=== PATIENT | male | born 1950 | race Two or more races ===

== ENCOUNTER 2017-03-25 14:28 | Inpatient (IN) | payer MEDICAID, MEDICARE, OTHER ==
[~2017-03-25] VITALS: Ht 172.7 cm; Wt 70.3 kg
[~2017-03-25 14:28] MED LIST: ACETAMINOPHEN325 M1 ORAL; ADALAT20 MG ORAL; ASPIR 8181 MG ORAL; CLONIDINE0.1 MG ORAL; DIVALPROEX SOD250 MG PO; IBUPROFEN600 MG ORAL; MAALOX MAXIMUM355 M1 PO; METOPROLOL TART25 MG ORAL; MOM30 ML ORAL; NEURONTIN300 MG ORAL; NKM; NOVOLOG100 UNIT/4 SQ; PERPHENAZINE16 MG PO
--- NOTE | 2017-03-25 14:53 | Emergency Room Report ---
History of Present Illness General Chief Complaint: Lower Back Pain or Injury Source: Patient, Family Member, EMS Present Illness HPI Patient presents with complaints of fall Patient is a poor historian I did make contact with the patient's daughter for further information At this time patient reported that he had been feeling very weak that he had a fall Was unclear there was a lapse of consciousness associated with this However the patient present with complaints of low back pain and left facial pain On review of records patient appears to have been discharge from the hospital 2 days ago When speaking with the patient he reports that last time he was in the hospital was one year ago History of present illness remains limited as the patient himself is a poor historian Allergies: Coded Allergies: No Known Allergies (Unverified , 03/25/17) Patient History Limited by: medical condition Past Medical History: see triage record Pertinent Family History: unable to obtain Reviewed Nursing Documentation: PMH: Agreed, PSxH: Agreed Nursing Documentation-PMH Hx Hypertension: Yes Hx Diabetes: Yes Review of Systems All Other Systems: limited - Other than the ones mentioned in the history of present illness all others are reviewed however they do stay limited due to the patient's mental status Physical Exam Vital Signs Date Time Temp Pulse Resp B/P Pulse Ox O2 Delivery O2 Flow Rate FiO2 03/25/17 14:22 98.2 111 16 110/70 98 Room Air Sp02 EP Interpretation: reviewed, normal General Appearance: mild distress - Patient appears tremulous, disheveled Head: normocephalic, other - Abrasion left maxillary area Eyes: bilateral eye EOMI, bilateral eye PERRL ENT: hearing grossly normal, normal pharynx, TMs + canals normal, uvula midline Neck: full range of motion, supple, no meningismus, no bony tend Respiratory: lungs clear, normal breath sounds, no rhonchi, no respiratory distress, no retraction, no accessory muscle use Cardiovascular #1: normal peripheral pulses, regular rate, rhythm, no edema, no gallop, no JVD, no murmur Gastrointestinal: normal bowel sounds, non tender, soft, no mass, no organomegaly, non-distended, no guarding, no hernia, no pulsatile mass, no rebound Genitourinary: no CVA tenderness Musculoskeletal: other - Patient is able to move all extremities without focal deficit, appears mildly tremulous, he had some discomfort on paraspinal L2-3 area Neurologic: responsive, motor strength/tone normal, sensory intact Skin: other - Appears disheveled, abrasion to the left maxillary area Lymphatic: normal inspection, no adenopathy Medical Decision Making Diagnostic Impression: Primary Impression: Syncope Additional Impressions: Hyponatremia Rhabdomyolysis Fracture of lumbar spine ER Course Patient is a fairly complex patient with multiple differential to consideration including but not limited to cardiac cardiopulmonary and vascular emergencies Patient appears tremulous unstable Baseline blood work reveal significant abnormalities as well Patient has IV hydration provided CAT scan of the L-spine reveals an indeterminate L4 compression fracture Admitting physician was notified about this And patient admitted for further care Labs Test 03/25/17 14:53 03/25/17 18:00 White Blood Count 13.9 K/UL (4.8-10.8) Red Blood Count 4.26 M/UL (4.70-6.10) Hemoglobin 12.8 G/DL (14.2-18.0) Hematocrit 37.8 % (42.0-52.0) Mean Corpuscular Volume 89 FL (80-99) Mean Corpuscular Hemoglobin 30.1 PG (27.0-31.0) Mean Corpuscular Hemoglobin Concent 33.9 G/DL (32.0-36.0) Red Cell Distribution Width 11.6 % (11.6-14.8) Platelet Count 271 K/UL (150-450) Mean Platelet Volume 5.6 FL (6.5-10.1) Neutrophils (%) (Auto) 76.3 % (45.0-75.0) Lymphocytes (%) (Auto) 14.0 % (20.0-45.0) Monocytes (%) (Auto) 8.9 % (1.0-10.0) Eosinophils (%) (Auto) 0.2 % (0.0-3.0) Basophils (%) (Auto) 0.6 % (0.0-2.0) Prothrombin Time 10.0 SEC (9.30-11.50) Prothromb Time International Ratio 1.0 (0.9-1.1) Activated Partial Thromboplast Time 26 SEC (23-33) Sodium Level 128 mEQ/L (135-145) Potassium Level 4.3 mEQ/L (3.4-4.9) Chloride Level 88 mEQ/L (98-107) Carbon Dioxide Level 22 mEQ/L (20-30) Anion Gap 18 (5-15) Blood Urea Nitrogen 33 mg/dL (7-23) Creatinine 0.9 mg/dL (0.7-1.2) Estimat Glomerular Filtration Rate > 60 mL/min (>60) Glucose Level 125 mg/dL (74-106) Calcium Level 9.5 mg/dL (8.6-10.2) Total Bilirubin 0.3 mg/dL (0.0-1.2) Aspartate Amino Transf (AST/SGOT) 62 U/L (5-40) Alanine Aminotransferase (ALT/SGPT) 58 U/L (3-41) Alkaline Phosphatase 68 U/L (40-129) Total Creatine Kinase 1459 U/L (38-174) Creatine Kinase MB 9.9 ng/mL (< 6.7) Creatine Kinase MB Relative Index 0.6 Troponin I < 0.30 ng/mL (<=0.30) Total Protein 7.3 g/dL (6.6-8.7) Albumin 4.1 g/dL (3.5-5.2) Globulin 3.2 g/dL Albumin/Globulin Ratio 1.2 (1.0-2.7) Urine Color Pale yellow Urine Appearance Clear Urine pH 6 (4.5-8.0) Urine Specific [place] 1.005 (1.005-1.035) Urine Protein Negative (NEGATIVE) Urine Glucose (UA) Negative (NEGATIVE) Urine Ketones 1+ (NEGATIVE) Urine Occult Blood 5+ (NEGATIVE) Urine Nitrite Negative (NEGATIVE) Urine Bilirubin Negative (NEGATIVE) Urine Urobilinogen Normal MG/DL (0.0-1.0) Urine Leukocyte Esterase Negative (NEGATIVE) Urine RBC 5-10 /HPF (0 - 0) Urine WBC 0-2 /HPF (0 - 0) Urine Squamous Epithelial Cells None /LPF (NONE/OCC) Urine Bacteria Few /HPF (NONE) Rhythm Strip Diag. Results EP Interpretation: yes Rate: 98 Rhythm: NSR, no PVC's, no ectopy Chest X-Ray Diagnostic Results EP Interpretation: Yes Findings: no consolidation, no effusion, no pneumothorax Number of Views: 1 CT/MRI/US Diagnostic Results CT/MRI/US Diagnostic Results : Impression CT head no acute disease CTLs spine: indeterminate L4 compression fracture Last Vital Signs Date Time Temp Pulse Resp B/P Pulse Ox O2 Delivery O2 Flow Rate FiO2 5/4/17 14:22 98.2 111 16 110/70 98 Room Air Status: improved Disposition: ADMITTED INPATIENT Condition: Serious VANDANA LUNA D.O. March 25, 2017 14:53
[2017-03-25 14:55] VITALS: BP 140/75
[2017-03-25 15:05] LABS: BASOPHILS % (AUTO) 0.6 % (0.0-2.0); EOSINOPHILS % (AUTO) 0.2 % (0.0-3.0); MEAN CORPUSCULAR HEMOGLOBIN 30.1 PG (27.0-31.0); MEAN CORPUSCULAR HGB CONC 33.9 G/DL (32.0-36.0); MEAN CORPUSCULAR VOLUME 89 FL (80-99); MEAN PLATELET VOLUME 5.6 FL (6.5-10.1); MONOCYTES % (AUTO) 8.9 % (1.0-10.0); NEUTROPHILS % (AUTO) 76.3 % (45.0-75.0); PLATELET COUNT 271 K/UL (150-450); RED BLOOD COUNT 4.26 M/UL (4.70-6.10); RED CELL DISTRIBUTION WIDTH 11.6 % (11.6-14.8); WHITE BLOOD COUNT 13.9 K/UL (4.8-10.8)
[2017-03-25 15:17] LABS: ALANINE AMINOTRANSFERASE 58 U/L (3-41); ALBUMIN/GLOBULIN RATIO 1.2 (1.0-2.7); ANION GAP 18 (5-15); ASPARTATE AMINO TRANSFERASE 62 U/L (5-40); CALCIUM 9.5 mg/dL (8.6-10.2); CARBON DIOXIDE 22 mEQ/L (20-30); CHLORIDE 88 mEQ/L (98-107); CREATININE 0.9 mg/dL (0.7-1.2); GLOMERULAR FILTRATION RATE > 60 mL/min (>60); HEMOLYSIS 2; POTASSIUM 4.3 mEQ/L (3.4-4.9); SODIUM 128 mEQ/L (135-145); TOTAL PROTEIN 7.3 g/dL (6.6-8.7)
[2017-03-25 15:18] LABS: TROPONIN I < 0.30 ng/mL (<=0.30)
[2017-03-25 15:27] LABS: CKMB 9.9 ng/mL (< 6.7)
--- NOTE | 2017-03-25 15:42 | Diagnostic Imaging Report ---
Indications: Fall, head trauma, pain Technique: Continuous helical CT imaging of the brain was performed with automatic exposure control on a Siemens sensation [address] scanner. Axial and coronal images were reconstructed at 5 mm slice thickness and interval. 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 No evidence of mass or hemorrhage, other attenuation abnormality, mass effect, midline shift, hydrocephalus or increased intracranial pressure. Bone window images are unremarkable. Visualized paranasal sinuses and mastoid air cells are clear. IMPRESSION: No evidence of acute injury or other acute intracranial pathology, unchanged Stable chronic changes as described. This includes left occipital parenchymal calcification which may represent old neurocysticercosis or low-grade glioma such as oligodendroglioma. The CT scanner at [facility] is accredited by the [employer] and the scans are performed using protocols designed to limit radiation exposure to as low as reasonably achievable to attain images of sufficient resolution adequate for diagnostic evaluation.
--- NOTE | 2017-03-25 15:44 | Diagnostic Imaging Report ---
Indications: Fall, low back pain Technique: Continuous helical CT imaging of the lumbar spine was performed with automatic exposure control on a Siemens sensation [address] scanner. Axial, coronal, and sagittal images were reconstructed at 3 mm slice thicknesses. CTDI volume(s): 13 mGy Total DLP: 413 mGy-cm Findings: Comparison: None Vertebral alignment is intact. The L4 vertebral body demonstrates compression fracture of its inferior endplate with approximately 20-30% height loss. No associated lucent fracture line, cortical discontinuity, retropulsion, posterior element involvement, underlying lytic destructive process, or paraspinous soft tissue swelling/fluid. Remaining main lumbar vertebrae normal in height and configuration. Osteophytes are present at the margins of multiple disc spaces without significant narrowing. Scattered arterial mural calcifications. Vascular patency indeterminate. IMPRESSION: Moderate compression fracture L4 vertebral body, acuity indeterminate. If clinically indicated, consider MRI for further evaluation. No other evidence of acute lumbar injury Multilevel degenerative disc disease Arteriosclerosis
--- NOTE | 2017-03-25 16:21 | Diagnostic Imaging Report ---
Indication: Shortness of breath Technique: Single portable AP view of the chest. Findings: Comparison: None. The bones and extra pulmonary soft tissues, cardiomediastinal silhouette, pulmonary vasculature and parenchyma, and pleural surfaces are unremarkable. IMPRESSION: Negative portable AP chest.
[2017-03-25 16:30] VITALS: BP 142/89
[2017-03-25] MEDS ORDERED: Diltiazem 25mg/5ml IV ONE (16:45)
[2017-03-25] MEDS ORDERED: HALOPERIDOL5 MG ORAL ×2 (17:08→19:11)
[2017-03-25] MEDS ORDERED: GABAPENTIN300 MG OCCLUS (17:09)
[2017-03-25 18:29] VITALS: BP 146/81
[2017-03-25 18:56] LABS: APPEARANCE,URINE CLEAR; KETONES,URINE 1+ (NEGATIVE); LEUKOCYTE ESTERASE ,URINE NEGATIVE (NEGATIVE); NITRITE,URINE NEGATIVE (NEGATIVE); PH,URINE 6 (4.5-8.0); PROTEIN,URINE NEGATIVE (NEGATIVE); UROBILINOGEN,URINE NORMAL MG/DL (0.0-1.0)
[2017-03-25 19:04] LABS: BACTERIA,URINE FEW /HPF; WBC,URINE 0-2 /HPF (0 - 0)
[2017-03-25] MEDS ORDERED: GABAPENTIN300 MG ORAL (19:10)
[2017-03-25] MEDS ORDERED: ADALAT10 MG ORAL (19:12)
[2017-03-25] MEDS ORDERED: METFORMIN HCL500 M1 ORAL (19:12)
[2017-03-25] MEDS ORDERED: PERPHEN-AMITRI1 EACH PO (19:13)
[2017-03-25] MEDS ORDERED: ATORVASTATIN CA20 MG ORAL (19:14)
[2017-03-25 19:18] VITALS: BP 140/85
[2017-03-25] MEDS ORDERED: Norco 5mg/325mg tab ORAL PRN (21:15)
[2017-03-25] MEDS ORDERED: Acetaminophen 500mg (ES) tab ORAL PRN (21:15)
[2017-03-25] MEDS: Heparin 5000 units/ml inj SUBQ SCH (22:21)
[2017-03-26] VITALS: BP 135/80
[2017-03-26 04:02] VITALS: BP 126/78
[2017-03-26] MEDS: NovoLOG Insulin Flexpen SUBQ SCH ×4 (06:30→21:55)
[2017-03-26 08:43] VITALS: BP 149/78
[2017-03-26] MEDS: Aspirin EC 81mg tab ORAL SCH (08:53)
[2017-03-26] MEDS: metFORMIN 500mg tab ORAL SCH ×2 (08:54→17:16)
[2017-03-26] MEDS: Metoprolol 25mg tab ORAL SCH (08:54)
[2017-03-26] MEDS: Heparin 5000 units/ml inj SUBQ SCH ×2 (08:59→21:56)
[2017-03-26] MEDS ORDERED: NIFEdipine 10mg cap ORAL SCH (09:00)
[2017-03-26] MEDS ORDERED: LORazepam Inj 2mg/ml 1ml IV ONE (11:30)
[2017-03-26 12:15] VITALS: BP 115/78
--- NOTE | 2017-03-26 13:55 | Diagnostic Imaging Report ---
Indication: Back pain Technique: MRI examination of the Lumbar spine was performed in a 1.5 Annia magnet. Sequences obtained include sagittal and axial T1 and T2 fast spin echo, and sagittal STIR. No IV gadolinium was given Comparison: none Findings: There is mild loss of height of the L4 vertebra but there is no bone marrow edema indicating a recent acute event or injury. Bone marrow signal is normal. There is desiccation of the intervertebral discs which appear relatively normal in height. There is hypertrophy of the facets at multiple levels consistent with osteoarthritis. Conus medullaris is seen at T12. L1-2 is unremarkable other than facet arthritis. L2-3 shows desiccation of the disc and hypertrophied facets. L3-4 shows facet hypertrophy. Mild foraminal stenosis noted. L4-5 shows mild disc bulge and facet arthropathy. Mild foraminal stenosis noted. L5-S1 demonstrates hypertrophy facets. Mild foraminal stenosis noted. Impression: No acute injury. Old mild compression fracture of L4 vertebra. Degenerative spondylosis with mild disc disease and mild to moderate facet arthropathy at multiple levels. Mild narrowing of the neural foramen at L3-4, L4-5 and L5-S1.
[2017-03-26 16:01] VITALS: BP 117/74
--- NOTE | 2017-03-26 18:18 | History and Physical Report ---
DATE OF ADMISSION: 03/25/2017 CHIEF COMPLAINT: Recurrent falls. HISTORY OF PRESENT ILLNESS: This is a 66-year-old male who was just discharged from this hospital several days ago with the same complaint. The patient was found on the street by paramedics and was transferred to this hospital during the last admission. He was then discharged to a residential care facility, but he kept falling. The patient is a very poor historian and unable to give any further information. At this time, the patient has a more extended database. PAST MEDICAL HISTORY: 1. Organic brain syndrome. 2. Psychosis. 3. Type 2 diabetes mellitus. 4. Hypertensive cardiovascular disease. HOME MEDICATIONS: 1. Baby aspirin. 2. Atorvastatin. 3. Depakote. 4. Neurontin. 5. Haldol. 6. Metformin. 7. Metoprolol. 8. Nifedipine. 9. Perphenazine. ALLERGIES: No known drug allergies. FAMILY HISTORY: Unable to obtain. The patient is confused. SOCIAL HISTORY: Unable to obtain. The patient is confused. REVIEW OF SYSTEMS: Unable to obtain. The patient is confused. PHYSICAL EXAMINATION: GENERAL: This is an elderly male who is in no acute distress. VITAL SIGNS: Blood pressure 126/78, pulse 109, sinus tachycardia, respirations 20, O2 saturation 98% on room air, and temperature 98. HEENT: The head is normocephalic and atraumatic. Pupils are equal, round, and reactive to light and accommodation consensually. NECK: Supple. Trachea is midline. There was no lymphadenopathy or thyromegaly. LUNGS: Clear to auscultation and percussion. HEART: Regular rate and rhythm without rubs, murmurs, or gallops. ABDOMEN: Soft and nontender. Bowel sounds are active. EXTREMITIES: No clubbing, cyanosis, or edema. NEUROLOGICAL: He is confused. There were no gross focal findings. The patient has a resting tremor. LABORATORY AND ANCILLARY DATA: CBC from yesterday, white count 13,900 and hemoglobin 12.8. Sodium 128. CPK 1459. Urinalysis, 5-10 RBCs, otherwise within normal limits. Head CT, no acute injury and stable chronic changes, which include left occipital parenchymal calcifications that were noticed during the last admission. Spine CT shows moderate compression fracture of L4 vertebral body, acuity in the terminates. ASSESSMENT: 1. Recurrent syncopal episodes, multifactorial, most likely related to the patient's multiple medical problems and medications. 2. Organic brain syndrome. 3. Psychosis. 4. Type 2 diabetes mellitus. 5. Hypertensive cardiovascular disease. PLAN: 1. Check vital signs and orthostatic vital signs. 2. Physical therapy evaluation. 3. The patient will need a placement in a [facility] facility due to his current and recurrent falls and risk of sustaining injuries such as the spinal fracture. Kevin Harrington M.D. DR: RADHA JOB#: [id number] CC:
[2017-03-26 20:00] VITALS: BP 128/68
[2017-03-26] MEDS ORDERED: PERPHENAZINE 2 MG ORAL SCH (21:00)
[2017-03-26] MEDS: PERPHENAZINE 2 MG ORAL SCH (22:50)
[2017-03-27] VITALS: BP 152/78
[2017-03-27 04:25] VITALS: BP 148/78
[2017-03-27] MEDS: NovoLOG Insulin Flexpen SUBQ SCH ×4 (06:16→21:06)
[2017-03-27 08:04] VITALS: BP 129/70
[2017-03-27 08:39] LABS: BASOPHILS % (AUTO) 1.3 % (0.0-2.0); EOSINOPHILS % (AUTO) 2.2 % (0.0-3.0); LYMPHOCYTES % (AUTO) 26.7 % (20.0-45.0); MEAN CORPUSCULAR HEMOGLOBIN 31.1 PG (27.0-31.0); MEAN CORPUSCULAR HGB CONC 33.6 G/DL (32.0-36.0); MEAN CORPUSCULAR VOLUME 92 FL (80-99); MONOCYTES % (AUTO) 9.4 % (1.0-10.0); NEUTROPHILS % (AUTO) 60.4 % (45.0-75.0); PLATELET COUNT 269 K/UL (150-450); RED BLOOD COUNT 4.31 M/UL (4.70-6.10); RED CELL DISTRIBUTION WIDTH 12.4 % (11.6-14.8); WHITE BLOOD COUNT 8.7 K/UL (4.8-10.8)
[2017-03-27] MEDS: Metoprolol 25mg tab ORAL SCH (08:44)
[2017-03-27] MEDS: Aspirin EC 81mg tab ORAL SCH (08:44)
[2017-03-27] MEDS: metFORMIN 500mg tab ORAL SCH ×2 (08:44→17:18)
[2017-03-27] MEDS: Heparin 5000 units/ml inj SUBQ SCH ×2 (08:46→21:02)
[2017-03-27 09:05] LABS: ALANINE AMINOTRANSFERASE 70 U/L (3-41); ALBUMIN/GLOBULIN RATIO 1.2 (1.0-2.7); ANION GAP 15 (5-15); ASPARTATE AMINO TRANSFERASE 103 U/L (5-40); CALCIUM 9.4 mg/dL (8.6-10.2); CARBON DIOXIDE 25 mEQ/L (20-30); CHLORIDE 96 mEQ/L (98-107); CREATININE 0.7 mg/dL (0.7-1.2); GLOMERULAR FILTRATION RATE > 60 mL/min (>60); HEMOLYSIS 6; MAGNESIUM 2.1 mg/dL (1.7-2.5); PHOSPHORUS 2.5 mg/dL (2.5-4.8); POTASSIUM 3.8 mEQ/L (3.4-4.9); SODIUM 136 mEQ/L (135-145); TOTAL PROTEIN 6.9 g/dL (6.6-8.7)
--- NOTE | 2017-03-27 09:05 | General Progress Note ---
Assessment/Plan Assessment/Plan 1. Recurrent syncopal episodes, multifactorial, most likely related to the patient's multiple medical problems and medications. 2. Organic brain syndrome. 3. Psychosis. 4. Type 2 diabetes mellitus. 5. Hypertensive cardiovascular disease. PLAN: MRI spine showed no acute injury.Old mild compression fracture of L4 vertebra.Degenerative spondylosis with mild disc disease and mild to moderate facet arthropathy at multiple levels. Mild narrowing of the neural foramen at L3-4, L4 -5 and L5-S1. continue current Mx need SNF Subjective Allergies: Coded Allergies: No Known Allergies (Unverified , 03/25/17) Subjective No acute event Objective Last 24 Hour Vital Signs Date Time Temp Pulse Resp B/P Pulse Ox O2 Delivery O2 Flow Rate FiO2 03/27/17 08:44 103 129/70 03/27/17 08:44 103 129/70 03/27/17 08:04 97.9 103 21 129/70 98 Room Air 03/27/17 04:50 95 03/27/17 04:25 97.2 97 19 148/78 95 Room Air 03/27/17 00:00 97.9 100 19 152/78 97 Room Air 03/27/17 00:00 93 03/26/17 21:00 96 96 103 03/26/17 20:00 91 03/26/17 20:00 98.1 95 20 128/68 97 Room Air 03/26/17 16:01 97.4 89 20 117/74 Room Air 03/26/17 16:00 95 03/26/17 12:15 97.7 95 20 115/78 98 Room Air 03/26/17 12:00 92 03/26/17 11:40 96 03/26/17 11:35 87 03/26/17 11:30 92 03/26/17 10:31 95 115/75 Intake and Output 03/26/17 03/27/17 19:00 07:00 Intake Total 480 ml 250 ml Balance 480 ml 250 ml Intake Oral 480 ml 250 ml # Voids 5 2 Laboratory Tests 03/27/17 07:22: White Blood Count 8.7, Red Blood Count 4.31L, Hemoglobin 13.4L, Hematocrit 39.9L , Mean Corpuscular Volume 92, Mean Corpuscular Hemoglobin 31.1H, Mean Corpuscular Hemoglobin Concent 33.6, Red Cell Distribution Width 12.4, Platelet Count 269, Mean Platelet Volume 5.0L, Neutrophils (%) (Auto) 60.4, Lymphocytes ( %) (Auto) 26.7, Monocytes (%) (Auto) 9.4, Eosinophils (%) (Auto) 2.2, Basophils (%) (Auto) 1.3, Sodium Level [Pending], Potassium Level [Pending], Chloride Level [Pending], Carbon Dioxide Level [Pending], Blood Urea Nitrogen [Pending], Creatinine [Pending], Estimat Glomerular Filtration Rate [Pending], Glucose Level [Pending], Calcium Level [Pending], Phosphorus Level [Pending], Magnesium Level [Pending], Total Bilirubin [Pending], Aspartate Amino Transf (AST/SGOT) [ Pending], Alanine Aminotransferase (ALT/SGPT) [Pending], Alkaline Phosphatase [ Pending], Total Creatine Kinase [Pending], Total Protein [Pending], Albumin [ Pending], Globulin [Pending] Height (Feet): 5 Height (Inches): 8.00 Weight (Pounds): 155 Objective NAD, confused CTA b/l,no rales, no rhonchi S1,S2,RRR,no M/R/G soft, non tender, BS+ no edema HUGHES,FRANKI March 27, 2017 09:05
[2017-03-27 11:56] VITALS: BP 119/73
[2017-03-27 16:09] VITALS: BP 136/68
--- NOTE | 2017-03-27 17:42 | Cardiology Report ---
APPROVED REPORT EKG Measurement Heart [id number] Sinus tachycardia Otherwise normal ECG
[2017-03-27 20:00] VITALS: BP 140/78
[2017-03-27] MEDS: PERPHENAZINE 2 MG ORAL SCH (21:01)
[2017-03-28 00:28] VITALS: BP 117/61
[2017-03-28 04:00] VITALS: BP 120/64
[2017-03-28] MEDS: NovoLOG Insulin Flexpen SUBQ SCH ×4 (06:46→21:00)
[2017-03-28 08:15] VITALS: BP 185/105
[2017-03-28] MEDS: Metoprolol 25mg tab ORAL SCH ×3 (08:33→21:18)
[2017-03-28] MEDS: Aspirin EC 81mg tab ORAL SCH (08:33)
[2017-03-28] MEDS: metFORMIN 500mg tab ORAL SCH ×2 (08:38→17:51)
[2017-03-28] MEDS: Heparin 5000 units/ml inj SUBQ SCH ×2 (08:38→21:18)
--- NOTE | 2017-03-28 09:08 | General Progress Note ---
Assessment/Plan Assessment/Plan 1. Recurrent syncopal episodes, multifactorial, most likely related to the patient's multiple medical problems and medications. 2. Organic brain syndrome. 3. Psychosis. 4. Type 2 diabetes mellitus. 5. Hypertensive cardiovascular disease.--uncontorlled BP PLAN: increase Lopressor to 50 mg BID Nicotine patch MRI spine showed no acute injury.Old mild compression fracture of L4 vertebra.Degenerative spondylosis with mild disc disease and mild to moderate facet arthropathy at multiple levels. Mild narrowing of the neural foramen at L3-4, L4 -5 and L5-S1. psych consult Discussed with RN Subjective Allergies: Coded Allergies: No Known Allergies (Unverified , 03/25/17) Subjective No acute event walking in the hallway to ask for cigarette Objective Last 24 Hour Vital Signs Date Time Temp Pulse Resp B/P Pulse Ox O2 Delivery O2 Flow Rate FiO2 03/28/17 09:00 112 03/28/17 08:55 112 03/28/17 08:50 112 03/28/17 08:33 100 185/105 03/28/17 08:32 100 185/105 03/28/17 08:15 97.0 100 20 185/105 100 Room Air 03/28/17 04:00 98.1 98 19 120/64 98 Room Air 03/28/17 04:00 88 03/28/17 00:28 98.1 95 18 117/61 98 Room Air 03/28/17 00:00 96 03/27/17 21:00 100 97 102 03/27/17 20:00 96 03/27/17 20:00 97.9 100 19 140/78 97 Room Air 03/27/17 16:09 98.1 92 21 136/68 100 Room Air 03/27/17 16:00 89 03/27/17 12:00 91 03/27/17 11:56 98.1 87 22 119/73 99 Room Air Intake and Output 03/27/17 03/28/17 19:00 07:00 Intake Total 1160 ml 250 ml Balance 1160 ml 250 ml Intake Oral 1160 ml 250 ml # Voids 2 # Bowel Movements 7 Height (Feet): 5 Height (Inches): 8.00 Weight (Pounds): 155 Objective NAD, confused CTA b/l,no rales, no rhonchi S1,S2,RRR,no M/R/G soft, non tender, BS+ no edema HUGHES,FRANKI March 28, 2017 09:08
[2017-03-28] MEDS: LORazepam 1mg tab ORAL PRN (09:57)
[2017-03-28 11:27] VITALS: BP 154/105
[2017-03-28 15:40] VITALS: BP 139/78
[2017-03-28 20:43] VITALS: BP 162/87
[2017-03-28] MEDS: PERPHENAZINE 2 MG ORAL SCH (21:19)
[2017-03-29 00:15] VITALS: BP 154/90
[2017-03-29 04:16] VITALS: BP 148/81
[2017-03-29] MEDS: NovoLOG Insulin Flexpen SUBQ SCH ×4 (06:24→22:00)
[2017-03-29 08:00] VITALS: BP 159/78
--- NOTE | 2017-03-29 08:14 | General Progress Note ---
Assessment/Plan Assessment/Plan Recurrent falls + syncope with L4 spinal fracture - needs SNF. W/U in progress. Acute Rhabdo recheck CPK. Subjective Allergies: Coded Allergies: No Known Allergies (Unverified , 03/25/17) Subjective Very confused Objective Last 24 Hour Vital Signs Date Time Temp Pulse Resp B/P Pulse Ox O2 Delivery O2 Flow Rate FiO2 03/29/17 05:26 86 03/29/17 04:16 98.7 84 19 148/81 97 Room Air 03/29/17 00:15 98.8 100 21 154/90 99 Room Air 03/29/17 00:00 86 03/28/17 21:18 103 157/81 03/28/17 20:44 104 103 108 03/28/17 20:43 98.7 104 20 162/87 95 Room Air 03/28/17 15:40 96.6 95 20 139/78 98 Room Air 03/28/17 11:27 97.3 91 20 154/105 100 Room Air 03/28/17 09:00 112 03/28/17 08:55 112 03/28/17 08:50 112 03/28/17 08:33 100 185/105 03/28/17 08:32 100 185/105 03/28/17 08:15 97.0 100 20 185/105 100 Room Air Intake and Output 03/28/17 03/29/17 19:00 07:00 Intake Total 1190 ml Balance 1190 ml Intake Oral 1190 ml # Voids 8 1 Height (Feet): 5 Height (Inches): 8.00 Weight (Pounds): 155 Objective CV RR Lungs CTA Abd SNT. BS + Neuro confused, nonfocal EMILE JANSEN March 29, 2017 08:14
[2017-03-29] MEDS: Heparin 5000 units/ml inj SUBQ SCH ×2 (08:27→21:58)
[2017-03-29] MEDS: Aspirin EC 81mg tab ORAL SCH (08:28)
[2017-03-29] MEDS: metFORMIN 500mg tab ORAL SCH ×2 (08:29→18:20)
[2017-03-29] MEDS: Metoprolol 25mg tab ORAL SCH ×2 (08:31→21:48)
[2017-03-29] MEDS: LORazepam 1mg tab ORAL PRN (09:29)
[2017-03-29 12:14] VITALS: BP 118/63
[2017-03-29 16:00] VITALS: BP 122/68
[2017-03-29] MEDS ORDERED: Norco 5mg/325mg tab ORAL PRN (18:00)
[2017-03-29] MEDS ORDERED: Acetaminophen 500mg (ES) tab ORAL PRN (18:00)
[2017-03-29 20:00] VITALS: BP 166/90
[2017-03-29] MEDS: PERPHENAZINE 2 MG ORAL SCH (21:49)
--- NOTE | 2017-03-29 22:49 | Consultation ---
DATE OF CONSULTATION: HISTORY OF PRESENT ILLNESS: The patient is a 66-year-old male with a history of psychotic disorder, diabetes mellitus, and hypertension, who has been admitted to the hospital due to recurrent falls. The patient during the evaluation appears to be confused, disoriented, has been presenting with waxing and waning consciousness, and not engaged during the evaluation. He is a poor historian. He is not able to give any information. He also has been presenting with anxiety and agitation. PAST MEDICAL HISTORY: Significant for delirium, psychotic disorder, type 2 diabetes mellitus, and hypertension. ALLERGIES: No known drug allergies. MEDICATIONS: At home includes Haldol, Neurontin, Depakote, atorvastatin, baby aspirin, nifedipine, metoprolol, and perphenazine. FAMILY HISTORY: Was unable to gather any information from the patient. SUBSTANCE ABUSE HISTORY: No known history of illicit drug use or alcohol. MENTAL STATUS EXAM: The patient is confused and disoriented. Mood is anxious. Affect is constricted. Congruent mood. Thought process is concrete. Thought content, no suicidal or homicidal ideation. Cognition is impaired. ASSESSMENT: [place] I Delirium due to underlying medical conditions. [place] II Deferred. [place] III Rhabdomyolysis. [place] IV Low. [place] V Global assessment of functioning is 20. PLAN: 1. The patient is currently on Haldol daily, we will stop the Haldol. We will stop the Depakote. 2. We would limit prescribing lorazepam. 3. We will start the patient on olanzapine 5 mg at bedtime. 4. Continue to follow and readjust the medications. Sona Zimmer M.D. DR: ADOLPH JOB#: [id number] CC:
[2017-03-30] VITALS: BP 136/76
[2017-03-30] MEDS: LORazepam 1mg tab ORAL PRN ×3 (00:50→21:53)
[2017-03-30 04:00] VITALS: BP 135/71
[2017-03-30] MEDS: NovoLOG Insulin Flexpen SUBQ SCH ×4 (06:06→20:18)
[2017-03-30 08:15] VITALS: BP 111/66
--- NOTE | 2017-03-30 08:27 | General Progress Note ---
Assessment/Plan Assessment/Plan Recurrent falls + syncope with L4 spinal fracture - needs SNF. MRI the L4 fracture is old. W/U in progress. Acute Rhabdo recheck CPK. Subjective Allergies: Coded Allergies: No Known Allergies (Unverified , 03/25/17) Subjective Less confused Objective Last 24 Hour Vital Signs Date Time Temp Pulse Resp B/P Pulse Ox O2 Delivery O2 Flow Rate FiO2 03/30/17 04:00 98.0 72 18 135/71 96 Room Air 03/30/17 00:00 98.1 49 18 136/76 97 Room Air 03/29/17 21:48 90 166/90 03/29/17 21:00 91 86 101 03/29/17 20:00 97.6 90 18 166/90 100 Room Air 03/29/17 16:00 97.0 85 22 122/68 96 Room Air 03/29/17 12:14 96.6 86 20 118/63 Room Air 03/29/17 09:10 151 03/29/17 09:05 154 03/29/17 09:00 140 03/29/17 08:31 86 148/81 03/29/17 08:31 86 148/81 Intake and Output 03/29/17 03/30/17 19:00 07:00 Intake Total 840 ml 480 ml Balance 840 ml 480 ml Intake Oral 840 ml 480 ml # Voids 5 2 Height (Feet): 5 Height (Inches): 8.00 Weight (Pounds): 155 Objective CV RR Lungs CTA Abd SNT. BS + Neuro confused, nonfocal EMILE JANSEN March 30, 2017 08:27
[2017-03-30] MEDS: metFORMIN 500mg tab ORAL SCH ×2 (08:56→18:25)
[2017-03-30] MEDS: Aspirin EC 81mg tab ORAL SCH (08:57)
[2017-03-30] MEDS: Metoprolol 25mg tab ORAL SCH ×3 (08:58→20:13)
[2017-03-30] MEDS: Heparin 5000 units/ml inj SUBQ SCH ×2 (08:58→20:17)
[2017-03-30 11:53] VITALS: BP 162/68
[2017-03-30 15:45] VITALS: BP 137/71
[2017-03-30 19:56] VITALS: BP 138/69
[2017-03-30] MEDS: PERPHENAZINE 2 MG ORAL SCH (20:12)
[2017-03-31] VITALS (7 sets, daily range): BP systolic 124–159; BP diastolic 61–83
[2017-03-31] MEDS: NovoLOG Insulin Flexpen SUBQ SCH ×4 (06:02→21:00)
[2017-03-31 06:30] LABS: BASOPHILS % (AUTO) 1.1 % (0.0-2.0); LYMPHOCYTES % (AUTO) 35.2 % (20.0-45.0); MEAN CORPUSCULAR HGB CONC 33.5 G/DL (32.0-36.0); MEAN CORPUSCULAR VOLUME 92 FL (80-99); MONOCYTES % (AUTO) 10.3 % (1.0-10.0); NEUTROPHILS % (AUTO) 50.4 % (45.0-75.0); PLATELET COUNT 285 K/UL (150-450); RED BLOOD COUNT 4.21 M/UL (4.70-6.10); RED CELL DISTRIBUTION WIDTH 12.4 % (11.6-14.8)
[2017-03-31 06:47] LABS: ANION GAP 13 (5-15); CALCIUM 9.8 mg/dL (8.6-10.2); CARBON DIOXIDE 27 mEQ/L (20-30); CHLORIDE 100 mEQ/L (98-107); CREATININE 0.8 mg/dL (0.7-1.2); GLOMERULAR FILTRATION RATE > 60 mL/min (>60); HEMOLYSIS 3; MAGNESIUM 1.8 mg/dL (1.7-2.5); PHOSPHORUS 3.7 mg/dL (2.5-4.8); POTASSIUM 3.8 mEQ/L (3.4-4.9); SODIUM 140 mEQ/L (135-145)
[2017-03-31] MEDS: Metoprolol 25mg tab ORAL SCH ×2 (09:17→21:00)
[2017-03-31] MEDS: metFORMIN 500mg tab ORAL SCH ×2 (09:17→18:48)
[2017-03-31] MEDS: Aspirin EC 81mg tab ORAL SCH (09:17)
[2017-03-31] MEDS: Heparin 5000 units/ml inj SUBQ SCH ×2 (09:20→21:00)
--- NOTE | 2017-03-31 12:04 | General Progress Note ---
Assessment/Plan Assessment/Plan Recurrent falls + syncope with L4 spinal fracture - needs SNF. MRI the L4 fracture is old. W/U in progress. Acute Rhabdo recheck CPK -WNL. Clear for SNF. Subjective Allergies: Coded Allergies: No Known Allergies (Unverified , 03/25/17) Subjective Less confused Objective Last 24 Hour Vital Signs Date Time Temp Pulse Resp B/P Pulse Ox O2 Delivery O2 Flow Rate FiO2 03/31/17 11:31 97.6 83 19 139/83 98 Room Air 03/31/17 09:19 96 137/74 03/31/17 09:17 96 137/74 03/31/17 09:06 92 96 97 03/31/17 08:14 97.7 91 19 127/72 96 Room Air 03/31/17 04:00 96.9 85 17 140/69 97 Room Air 03/31/17 00:00 99.5 88 17 124/ 97 Room Air 03/30/17 21:00 85 85 03/30/17 20:13 92 138/69 03/30/17 19:56 96.9 92 16 138/69 98 Room Air 03/30/17 15:45 98.7 92 22 137/71 98 Room Air Intake and Output 03/30/17 03/31/17 19:00 07:00 Intake Total 1200 ml Balance 1200 ml Intake Oral 1200 ml # Voids 6 3 Laboratory Tests 03/31/17 05:45: White Blood Count 8.0, Red Blood Count 4.21L, Hemoglobin 13.0L, Hematocrit 38.9L , Mean Corpuscular Volume 92, Mean Corpuscular Hemoglobin 31.0, Mean Corpuscular Hemoglobin Concent 33.5, Red Cell Distribution Width 12.4, Platelet Count 285, Mean Platelet Volume 5.0L, Neutrophils (%) (Auto) 50.4, Lymphocytes ( %) (Auto) 35.2, Monocytes (%) (Auto) 10.3H, Eosinophils (%) (Auto) 3.0, Basophils (%) (Auto) 1.1, Sodium Level 140, Potassium Level 3.8, Chloride Level 100, Carbon Dioxide Level 27, Anion Gap 13, Blood Urea Nitrogen 15, Creatinine 0.8, Estimat Glomerular Filtration Rate > 60, Glucose Level 107H, Calcium Level 9.8, Phosphorus Level 3.7, Magnesium Level 1.8, Total Creatine Kinase 131 Height (Feet): 5 Height (Inches): 8.00 Weight (Pounds): 155 Objective CV RR Lungs CTA Abd SNT. BS + Neuro confused, nonfocal EMILE JANSEN March 31, 2017 12:04
[2017-03-31] MEDS: LORazepam 1mg tab ORAL PRN (13:00)
[2017-03-31] MEDS ORDERED: METOPROLOL TART50 M1 ORAL (19:48)
[2017-03-31] MEDS ORDERED: ZYPREXA5 MG ORAL (19:50)
[2017-03-31] MEDS ORDERED: HEPARIN SO5000 UNIT2 SUBQ (19:53)
[2017-03-31] MEDS ORDERED: NICODERM CQ1 EAC1 TD (19:54)
[2017-03-31] MEDS ORDERED: LORAZEPAM1 MG ORAL (19:56)
[2017-03-31] MEDS ORDERED: NORCO 5-325 TA1 EAC1 ORAL (19:57)
[2017-03-31] MEDS ORDERED: TYLENOL EXTRA500 MG ORAL (19:58)
[2017-03-31] MEDS ORDERED: NOVOLOG100 UNITS1 ×2 (20:00→20:02)
[2017-03-31] MEDS: PERPHENAZINE 2 MG ORAL SCH (21:00)
[2017-04-01 04:00] VITALS: BP 150/75
[2017-04-01] MEDS: NovoLOG Insulin Flexpen SUBQ SCH ×4 (06:14→21:45)
[2017-04-01 08:00] VITALS: BP 131/64
[2017-04-01] MEDS: Aspirin EC 81mg tab ORAL SCH (09:35)
[2017-04-01] MEDS: metFORMIN 500mg tab ORAL SCH ×2 (09:36→18:24)
[2017-04-01] MEDS: Metoprolol 25mg tab ORAL SCH ×2 (09:36→21:36)
[2017-04-01] MEDS: Heparin 5000 units/ml inj SUBQ SCH ×2 (09:39→21:42)
[2017-04-01 12:00] VITALS: BP 168/89
[2017-04-01 16:00] VITALS: BP 131/68
--- NOTE | 2017-04-01 17:25 | General Progress Note ---
Assessment/Plan Assessment/Plan Recurrent falls + syncope with L4 spinal fracture - needs SNF. MRI the L4 fracture is old. W/U in progress. Acute Rhabdo recheck CPK -WNL. Clear for SNF. Subjective Allergies: Coded Allergies: No Known Allergies (Unverified , 03/25/17) Subjective Less confused Objective Last 24 Hour Vital Signs Date Time Temp Pulse Resp B/P Pulse Ox O2 Delivery O2 Flow Rate FiO2 04/01/17 16:00 97.8 85 18 131/68 Room Air 04/01/17 12:00 97.7 85 19 168/89 100 Room Air 04/01/17 09:36 88 131/64 04/01/17 09:35 88 131/64 04/01/17 09:00 88 85 85 04/01/17 08:00 98.1 88 19 131/64 98 Room Air 04/01/17 04:00 87 86 91 04/01/17 04:00 96.9 87 17 150/75 Room Air 03/31/17 23:18 97.2 101 17 159/69 97 Room Air 03/31/17 21:00 92 146/92 03/31/17 21:00 92 92 96 03/31/17 19:50 97.0 86 17 129/75 99 Room Air Intake and Output 03/31/17 04/01/17 19:00 07:00 Intake Total 1300 ml 280 ml Balance 1300 ml 280 ml Intake Oral 1300 ml 280 ml # Voids 7 3 Height (Feet): 5 Height (Inches): 8.00 Weight (Pounds): 155 Objective CV RR Lungs CTA Abd SNT. BS + Neuro confused, nonfocal EMILE JANSEN April 01, 2017 17:25
[2017-04-01 20:00] VITALS: BP 177/86
[2017-04-01] MEDS: LORazepam 1mg tab ORAL PRN (21:34)
[2017-04-01] MEDS: PERPHENAZINE 2 MG ORAL SCH (21:35)
[2017-04-02] VITALS: BP 130/72
[2017-04-02 04:00] VITALS: BP 125/62
[2017-04-02] MEDS: NovoLOG Insulin Flexpen SUBQ SCH ×4 (06:36→20:54)
[2017-04-02 07:59] VITALS: BP 136/83
--- NOTE | 2017-04-02 09:07 | General Progress Note ---
Assessment/Plan Assessment/Plan Recurrent falls + syncope with L4 spinal fracture - needs SNF. MRI the L4 fracture is old. W/U in progress. Acute Rhabdo recheck CPK -WNL. Clear for SNF. Awaiting SNF acceptance. MARYCRUZ CM. Subjective Allergies: Coded Allergies: No Known Allergies (Unverified , 03/25/17) Subjective Less confused Objective Last 24 Hour Vital Signs Date Time Temp Pulse Resp B/P Pulse Ox O2 Delivery O2 Flow Rate FiO2 04/02/17 07:59 97.9 90 14 136/83 99 Room Air 04/02/17 05:30 80 82 83 04/02/17 04:00 97.0 84 20 125/62 98 Room Air 04/02/17 00:00 97.7 86 18 130/72 96 Room Air 04/01/17 21:36 88 177/86 04/01/17 21:00 80 82 83 04/01/17 20:00 97.5 88 19 177/86 96 Room Air 04/01/17 16:00 97.8 85 18 131/68 Room Air 04/01/17 12:00 97.7 85 19 168/89 100 Room Air 04/01/17 09:36 88 131/64 04/01/17 09:35 88 131/64 Intake and Output 04/01/17 04/02/17 19:00 07:00 Intake Total 1060 ml 120 ml Balance 1060 ml 120 ml Intake Oral 1060 ml 120 ml # Voids 8 2 # Bowel Movements 1 Height (Feet): 5 Height (Inches): 8.00 Weight (Pounds): 155 Objective CV RR Lungs CTA Abd SNT. BS + Neuro confused, nonfocal EMILE JANSEN April 02, 2017 09:07
[2017-04-02] MEDS: Aspirin EC 81mg tab ORAL SCH (10:01)
[2017-04-02] MEDS: Metoprolol 25mg tab ORAL SCH ×2 (10:02→20:43)
[2017-04-02] MEDS: metFORMIN 500mg tab ORAL SCH ×2 (10:03→17:28)
[2017-04-02] MEDS: Heparin 5000 units/ml inj SUBQ SCH ×2 (10:05→20:50)
[2017-04-02 12:15] VITALS: BP 137/68
[2017-04-02 15:31] VITALS: BP 134/62
[2017-04-02 20:00] VITALS: BP 125/70
[2017-04-02] MEDS: PERPHENAZINE 2 MG ORAL SCH (20:42)
[2017-04-03] VITALS: BP 124/76
[2017-04-03 04:00] VITALS: BP 129/64
[2017-04-03] MEDS: NovoLOG Insulin Flexpen SUBQ SCH ×4 (06:34→20:17)
[2017-04-03 08:00] VITALS: BP 141/72
[2017-04-03 08:11] LABS: BASOPHILS % (AUTO) 1.4 % (0.0-2.0); EOSINOPHILS % (AUTO) 3.6 % (0.0-3.0); LYMPHOCYTES % (AUTO) 33.3 % (20.0-45.0); MEAN CORPUSCULAR HEMOGLOBIN 31.2 PG (27.0-31.0); MEAN CORPUSCULAR HGB CONC 33.8 G/DL (32.0-36.0); MEAN CORPUSCULAR VOLUME 92 FL (80-99); MEAN PLATELET VOLUME 5.4 FL (6.5-10.1); MONOCYTES % (AUTO) 7.4 % (1.0-10.0); NEUTROPHILS % (AUTO) 54.3 % (45.0-75.0); PLATELET COUNT 317 K/UL (150-450); RED BLOOD COUNT 4.37 M/UL (4.70-6.10); RED CELL DISTRIBUTION WIDTH 12.6 % (11.6-14.8); WHITE BLOOD COUNT 7.9 K/UL (4.8-10.8)
[2017-04-03 08:32] LABS: ALANINE AMINOTRANSFERASE 70 U/L (3-41); ALBUMIN/GLOBULIN RATIO 1.2 (1.0-2.7); ANION GAP 15 (5-15); ASPARTATE AMINO TRANSFERASE 33 U/L (5-40); CALCIUM 9.6 mg/dL (8.6-10.2); CARBON DIOXIDE 26 mEQ/L (20-30); CHLORIDE 96 mEQ/L (98-107); CREATININE 0.8 mg/dL (0.7-1.2); GLOMERULAR FILTRATION RATE > 60 mL/min (>60); HEMOLYSIS 5; MAGNESIUM 1.9 mg/dL (1.7-2.5); POTASSIUM 3.8 mEQ/L (3.4-4.9); SODIUM 137 mEQ/L (135-145); TOTAL PROTEIN 7.7 g/dL (6.6-8.7)
[2017-04-03] MEDS: Aspirin EC 81mg tab ORAL SCH (09:07)
[2017-04-03] MEDS: Metoprolol 25mg tab ORAL SCH ×2 (09:08→20:12)
[2017-04-03] MEDS: metFORMIN 500mg tab ORAL SCH ×2 (09:08→18:04)
[2017-04-03] MEDS: Heparin 5000 units/ml inj SUBQ SCH ×2 (09:09→20:15)
--- NOTE | 2017-04-03 10:26 | General Progress Note ---
Assessment/Plan Assessment/Plan Recurrent falls + syncope with L4 spinal fracture - needs SNF. MRI the L4 fracture is old. W/U in progress. Acute Rhabdo resolved. Clear for SNF. Awaiting SNF acceptance. MARYCRUZ Macias. Considering acceptance. Subjective Allergies: Coded Allergies: No Known Allergies (Unverified , 03/25/17) Subjective Less confused Objective Last 24 Hour Vital Signs Date Time Temp Pulse Resp B/P Pulse Ox O2 Delivery O2 Flow Rate FiO2 04/03/17 09:08 88 141/72 04/03/17 09:07 88 141/72 04/03/17 08:00 97.9 88 20 141/72 100 Room Air 04/03/17 04:00 97.8 84 20 129/64 98 Room Air 04/03/17 00:00 98.2 88 20 124/76 99 Room Air 04/02/17 20:43 89 125/70 04/02/17 20:00 97.5 89 18 125/70 98 Room Air 04/02/17 15:31 97.0 85 15 134/62 100 Room Air 04/02/17 12:15 97.3 79 15 137/68 99 Room Air Intake and Output 04/02/17 04/03/17 19:00 07:00 Intake Total 4000 ml 720 ml Balance 4000 ml 720 ml Intake Oral 4000 ml 720 ml # Voids 5 3 # Bowel Movements 3 Laboratory Tests 04/03/17 07:14: White Blood Count 7.9, Red Blood Count 4.37L, Hemoglobin 13.6L, Hematocrit 40.3L , Mean Corpuscular Volume 92, Mean Corpuscular Hemoglobin 31.2H, Mean Corpuscular Hemoglobin Concent 33.8, Red Cell Distribution Width 12.6, Platelet Count 317, Mean Platelet Volume 5.4L, Neutrophils (%) (Auto) 54.3, Lymphocytes ( %) (Auto) 33.3, Monocytes (%) (Auto) 7.4, Eosinophils (%) (Auto) 3.6H, Basophils (%) (Auto) 1.4, Sodium Level 137, Potassium Level 3.8, Chloride Level 96L, Carbon Dioxide Level 26, Anion Gap 15, Blood Urea Nitrogen 14, Creatinine 0.8, Estimat Glomerular Filtration Rate > 60, Glucose Level 122H, Calcium Level 9.6, Magnesium Level 1.9, Total Bilirubin < 0.2, Aspartate Amino Transf (AST/ SGOT) 33, Alanine Aminotransferase (ALT/SGPT) 70H, Alkaline Phosphatase 66, Total Protein 7.7, Albumin 4.2, Globulin 3.5, Albumin/Globulin Ratio 1.2 Height (Feet): 5 Height (Inches): 8.00 Weight (Pounds): 155 Objective CV RR Lungs CTA Abd SNT. BS + Neuro confused, nonfocal EMILE JANSEN April 03, 2017 10:26
[2017-04-03 12:00] VITALS: BP 137/74
[2017-04-03 16:00] VITALS: BP 138/71
[2017-04-03 20:07] VITALS: BP 155/81
[2017-04-03] MEDS: PERPHENAZINE 2 MG ORAL SCH (20:13)
[2017-04-04 00:06] VITALS: BP 141/60
[2017-04-04 04:04] VITALS: BP 143/74
[2017-04-04] MEDS: NovoLOG Insulin Flexpen SUBQ SCH ×4 (06:00→20:44)
[2017-04-04 08:00] VITALS: BP 125/67
[2017-04-04] MEDS: metFORMIN 500mg tab ORAL SCH ×2 (09:17→17:38)
[2017-04-04] MEDS: Aspirin EC 81mg tab ORAL SCH (09:17)
[2017-04-04] MEDS: Metoprolol 25mg tab ORAL SCH ×2 (09:18→20:40)
[2017-04-04] MEDS: Heparin 5000 units/ml inj SUBQ SCH ×2 (09:19→20:45)
[2017-04-04 11:56] VITALS: BP 141/79
--- NOTE | 2017-04-04 13:09 | General Progress Note ---
Assessment/Plan Assessment/Plan Recurrent falls + syncope with L4 spinal fracture - needs SNF. MRI the L4 fracture is old. W/U in progress. Acute Rhabdo resolved. Clear for SNF. Awaiting SNF acceptance. MARYCRUZ [facility]. Considering acceptance. Subjective Allergies: Coded Allergies: No Known Allergies (Unverified , 03/25/17) Subjective Less confused Objective Last 24 Hour Vital Signs Date Time Temp Pulse Resp B/P Pulse Ox O2 Delivery O2 Flow Rate FiO2 04/04/17 11:56 96.1 89 20 141/79 98 Room Air 04/04/17 09:18 83 143/74 04/04/17 09:17 83 143/74 04/04/17 08:00 97.9 90 20 125/67 96 Room Air 04/04/17 04:04 98.0 83 20 143/74 100 Room Air 04/04/17 00:06 98.0 98 20 141/60 97 Room Air 04/03/17 20:12 95 155/81 04/03/17 20:07 98.1 95 20 155/81 98 Room Air 04/03/17 16:00 97.8 83 20 138/71 99 Room Air Intake and Output 04/03/17 04/04/17 19:00 07:00 Intake Total 550 ml Balance 550 ml Intake Oral 550 ml # Voids 5 3 Height (Feet): 5 Height (Inches): 8.00 Weight (Pounds): 155 Objective CV RR Lungs CTA Abd SNT. BS + Neuro confused, nonfocal EMILE JANSEN April 04, 2017 13:09
[2017-04-04 16:00] VITALS: BP 137/77
[2017-04-04 19:50] VITALS: BP 133/80
[2017-04-04] MEDS: PERPHENAZINE 2 MG ORAL SCH (20:40)
[2017-04-05 03:51] VITALS: BP 121/74
[2017-04-05] MEDS: NovoLOG Insulin Flexpen SUBQ SCH ×3 (06:07→17:05)
[2017-04-05 08:00] VITALS: BP 96/54
--- NOTE | 2017-04-05 08:31 | General Progress Note ---
Assessment/Plan Assessment/Plan Recurrent falls + syncope with L4 spinal fracture - needs SNF. MRI the L4 fracture is old. W/U in progress. Acute Rhabdo resolved. Clear for SNF. Awaiting SNF acceptance. MARYCRUZ BENAVIDES. MARYCRUZ [facility]. Considering acceptance. Subjective Allergies: Coded Allergies: No Known Allergies (Unverified , 03/25/17) Subjective Less confused Objective Last 24 Hour Vital Signs Date Time Temp Pulse Resp B/P Pulse Ox O2 Delivery O2 Flow Rate FiO2 04/05/17 03:51 96.8 89 20 121/74 98 Room Air 04/04/17 20:40 103 133/80 04/04/17 19:50 96.6 103 20 133/80 96 Room Air 04/04/17 16:00 97.7 92 18 137/77 96 Room Air 04/04/17 11:56 96.1 89 20 141/79 98 Room Air 04/04/17 09:18 83 143/74 04/04/17 09:17 83 143/74 Intake and Output 04/04/17 04/05/17 19:00 07:00 Intake Total 2200 ml 2000 ml Balance 2200 ml 2000 ml Intake Oral 2000 ml Other 2200 ml # Voids 5 10 # Bowel Movements 1 Height (Feet): 5 Height (Inches): 8.00 Weight (Pounds): 155 Objective CV RR Lungs CTA Abd SNT. BS + Neuro confused, nonfocal EMILE JANSEN April 05, 2017 08:31
[2017-04-05] MEDS: metFORMIN 500mg tab ORAL SCH ×2 (09:06→17:36)
[2017-04-05] MEDS: Heparin 5000 units/ml inj SUBQ SCH (09:06)
[2017-04-05] MEDS: Metoprolol 25mg tab ORAL SCH (09:07)
[2017-04-05] MEDS: Aspirin EC 81mg tab ORAL SCH (09:07)
[2017-04-05 12:00] VITALS: BP 127/74
[2017-04-05 16:00] VITALS: BP 138/71
--- NOTE | 2017-04-06 11:55 | Discharge Summary ---
Discharge Summary Hospital Course Date of Admission March 25, 2017 at 15:36 Date of Discharge April 05, 2017 at 19:30 Admitting Diagnosis syncope, encephalopathy, multiple falls HPI Hema Trevino is a 66 year old male who was admitted on March 25, 2017 at 15: 36 for Syncope,Encephalopathy,Multiple Falls Hospital Course dc summary #[id number] Discharge Medications Continued Medications: Acetaminophen* (Tylenol Extra Strength*) 500 Mg Tablet 500 MG ORAL Q6H PRN for Mild Pain/Temp > 100.5, TAB 0 Refills Aspirin* (Aspir 81*) 81 Mg Tablet.dr 81 MG ORAL DAILY, TAB Atorvastatin Calcium* (Atorvastatin Calcium*) 20 Mg Tablet 10 MG ORAL BEDTIME Gabapentin* (Gabapentin*) 300 Mg Capsule 300 MG ORAL BID Heparin Sod (Porcine) (Heparin Sodium*) 5 000/1 Ml Vial 5000 UNITS SUBQ EVERY 12 HOURS, VIAL Hydrocodone Bit/Acetaminophen 5-325* ([place] 5-325 Tablet*) 1 Each Tablet 1 TAB ORAL EVERY 6 HOURS PRN for Moderate Pain (Pain Scale 4-6), TAB Lorazepam* (Lorazepam*) 1 Mg Tablet 1 MG ORAL EVERY 6 HOURS PRN for For Anxiety, TAB Metformin Hcl* (Metformin Hcl*) 500 Mg Tablet 500 MG ORAL TWICE A DAY Metoprolol Tartrate* (Metoprolol Tartrate*) 50 Mg Tablet 50 MG ORAL EVERY 12 HOURS, TAB Nicotine 14MG Patch* (Nicoderm Cq 14MG*) 1 Each Patch.td24 1 EACH TD DAILY, EA Nifedipine (Nifedipine*) 10 Mg Capsule 30 MG ORAL DAILY Olanzapine* (Zyprexa*) 5 Mg Tablet 5 MG ORAL QHS, TAB Perphenazine (Perphenazine) 16 Mg Tablet 16 MG PO BEDTIME, TAB Discontinued Medications: Divalproex Sodium (Divalproex Sodium) 250 Mg Tablet.dr 250 MG PO TID, TAB Metoprolol Tartrate* (Metoprolol Tartrate*) 25 Mg Tablet 25 MG ORAL DAILY, TAB Perphenazine/Amitriptyline Hcl (Perphen-Amitrip 2 Mg-10 Mg Tab) 1 Each Tablet 1 EACH PO DAILY Discharge Condition Upon Discharge: stable Discharge Disposition Patient was discharged to SNF/Subacute Facility(03) Discharge Diagnoses: Discharge Instructions Discharge Instructions Special Instructions I have been assigned to complete a D/C Summary on this account. I was not involved in the patient management Dann Hansen (Vanchtein)et HOT POND OPERATOR April 06, 2017 11:55
--- NOTE | 2017-04-07 06:51 | Discharge Summary 2 SIG ---
DATE OF ADMISSION: 03/25/2017 DATE OF DISCHARGE: 04/05/2017 REASON FOR ADMISSION: 66-year-old male with history of recurrent syncopal episodes, presented this time complaining of fall. The patient by himself was a poor historian. He reported that he felt weak and he was not unable to stand straight. He had a lapse of consciousness associated with that. The patient complained of low back pain and left facial pain, after fall. Workup in the emergency room revealed CK- 1459, sodium- 128. CT of the head was negative for any acute pathology. Chest x-ray was negative. CT of the spine revealed L4 compression fracture and multilevel degenerative disk disease . No other evidence of acute lumbar injury. EKG revealed normal sinus rhythm. The patient was tachycardiac - 111. Mild leukocytosis with WBC -13.9. AST -62 and ALT -58. Urinalysis was negative for any evidence for UTI. The patient was admitted for further management. ADMITTING DIAGNOSES: 1. Syncope. 2. Hyponatremia. 3. Rhabdomyolysis. 4. L4 compression fracture. HOSPITAL STAY: The patient was admitted. Patient was started on IV fluids. Recurrent syncopal episodes likely multifactorial related to patient's multiple medical problems and medication. Orthostatic blood pressure was checked. No evidence of orthostasis. The patient was working with the physical and occupational therapists. Psychiatric evaluation was requested. Psychiatrist diagnosed the patient with delirium secondary to medical condition, which was resolving. She recommended to stop Depakote and Haldol and limit prescribing lorazepam. She started the patient on Zyprexa 5 mg at bedtime. MRI of the L-spine was done subsequently to check for acuity of L4 compression fracture, which revealed no acute injury, but demonstrated old compression fracture at L4 as well as degenerative spondylosis with disk disease at multiple levels. CK was trending down. Patient was on IV hydration. Initially, after the first day CK was up to 3039, then started to trend down and on 03/31/2017 , CK- 131. Hyponatremia resolved next day. Sodium was 136, likely depletional hyponatremia. Renal parameters and electrolytes were clsoely monitored. Pain management was provided. Bowel regimen was instituted. DVT and GI prophylaxis were provided. Blood pressure was managed with beta-sandoval , dose was optimized to keep blood pressure under control. Blood sugar was managed with sliding scale of insulin, and was stable. Mental status at baseline. The patient needed a [facility] to jail facility since due to the recurrent syncopal falls, there was a high risk of sustaining different types of injuries. Subsequently placement was found and secured. The patient was discharged to jail facility. FINAL DIAGNOSES: 1. Recurrent syncopal episodes (likely multifactorial related to multiple medical problem). 2. Hyponatremia, likely depletional, -resolved. 3. Rhabdomyolysis,-resolved. 4. L4 compression fracture, old. 5. Organic brain syndrome. 6. Psychosis. 7. Diabetes mellitus. 8. Hypertension. 9. Delirium secondary to medical condition, -resolved. DISCHARGE MEDICATIONS: See medication reconciliation list. DISCHARGE INSTRUCTIONS: The patient was discharged to jail facility. FOLLOWUP: Follow up with medical doctor at the facility. Kevin Harrington M.D. I have been assigned to dictate discharge summary on this account and I was not involved in the patient's management. Jennifer Reyesmarti NChongPChong DR: SOILA JOB#: [id number] CC: [email or web address]
== END 2017-04-05 19:30 | DRG 641 ==
LOC: EDBD 14:28 → EMR 15:25 → 2E 15:36 → EDBEDREQ 18:32 → 2E 19:47 → 4W 03-29 17:22 → 4E 03-30 00:27
DX: E87.1 Hypo-osmolality and hyponatremia (principal); F05 Delirium due to known physiological condition; I11.9 Hypertensive heart disease without heart failure; M62.82 Rhabdomyolysis; Z91.81 History of falling; R55 Syncope and collapse; M48.56XD Collapsed vertebra, not elsewhere classified, lumbar region, subsequent encounter for fracture with routine healing; E11.9 Type 2 diabetes mellitus without complications; M47.899 Other spondylosis, site unspecified; F29 Unspecified psychosis not due to a substance or known physiological condition
CPT/HCPCS: 36415; 70450; 71010; 72131; 72148; 80048; 80053; 81003; 82550; 82553; 82962; 83735; 84100; 84484; 85025; 85610; 85730; 87081; 87324; 93005; J1815